=== PATIENT | male | born 1975 | race Hispanic/Latino ===

== ENCOUNTER 2017-08-29 09:35 | Emergency (ER) | payer BC ==
[2017-08-29 09:39] VITALS: BMI 24.2
[2017-08-29 09:41] VITALS: BP 131/84; PULSE 58; RESP 16; TEMP 97.6; O2SAT 99
--- NOTE | 2017-08-29 10:12 | RAD ---
PROCEDURE: Left Foot Radiographs. HISTORY: left foot pain injury COMPARISON: None. FINDINGS: BONES: There is an acute comminuted nondisplaced fracture in the base of the 5th metatarsal. Bone alignment and mineralization are normal. JOINTS: Normal. SOFT TISSUES: Normal. OTHER FINDINGS: None. IMPRESSION: Acute comminuted transverse nondisplaced fracture in the base of the 5th metatarsal.
--- NOTE | 2017-08-29 10:36 | ED PDOC ---
Lower Extremity Pain/Injury Time Seen by Provider: 08/29/17 09:44 Chief Complaint (Nursing): Lower Extremity Problem/Injury Chief Complaint (Provider): Lower Extremity Problem/Injury History Per: Patient History/Exam Limitations: no limitations Onset/Duration Of Symptoms: Days (x2 days) Additional Complaint(s): 42 y/o male presents to the ED complaining of pain in left foot dorsum x 2 days. States that he stepped on a plastic toy and twisted his foot. Reports that pain is worse as he walks and put weight on it. Denies any further medical complaints. - Ankle/Foot Description Of Injury: Twisted (Left foot) Past Medical History Reviewed: Historical Data, Nursing Documentation, Vital Signs Vital Signs: Last Vital Signs Temp 97.6 F 08/29/17 09:40 Pulse 58 L 08/29/17 09:40 Resp 16 08/29/17 09:40 BP 131/84 08/29/17 09:40 Pulse Ox 99 08/29/17 09:40 - Medical History PMH: No Chronic Diseases - Surgical History Surgical History: Hernia Repair (as ) - Family History Family History: States: Unknown Family Hx - Social History Current smoker - smoking cessation education provided: No (Never Smoked) Alcohol: None Drugs: Denies - Home Medications Home Medications: Ambulatory Orders Medication Instructions Recorded Amoxicillin/Clavulanate Pota 1 tab PO BID #14 tab 06/15/14 [Augmentin 875 mg-125 mg] Oxycodone HCl/Acetaminophen 1 tab PO Q4 #10 tab 07/22/14 [Percocet 325 mg-5 mg] Penicillin V Potassium [Aoracillin 500 mg PO BID #20 tab 07/22/14 B] - Allergies Allergies/Adverse Reactions: Allergies Allergy/AdvReac Type Severity Reaction Status Date / Time No Known Allergies Allergy Verified 08/29/17 09:57 Review of Systems ROS Statement: Except As Marked, All Systems Reviewed And Found Negative (As per HPI, otherwise negative) Musculoskeletal: Positive for: Foot Pain (Left) Physical Exam - Reviewed Nursing Documentation Reviewed: Yes Vital Signs Reviewed: Yes - Physical Exam Appears: Positive for: Non-toxic, No Acute Distress Head Exam: Positive for: ATRAUMATIC, NORMAL INSPECTION, NORMOCEPHALIC Skin: Positive for: Normal Color, Warm, Dry Eye Exam: Positive for: Normal appearance, EOMI ENT: Positive for: Normal ENT Inspection Neck: Positive for: Normal Cardiovascular/Chest: Positive for: Regular Rate, Rhythm Respiratory: Positive for: Normal Breath Sounds. Negative for: Accessory Muscle Use, Respiratory Distress Gastrointestinal/Abdominal: Positive for: Normal Exam, Soft. Negative for: Tenderness Back: Positive for: Normal Inspection Extremity: Positive for: Normal ROM, Tenderness (in left 5th metatarsal bone area), Swelling (mild swelling noted in left 5th metatarsal bone area), Other ( Ankle is normal). Negative for: Deformity Neurologic/Psych: Positive for: Alert, Oriented (x3) - ECG O2 Sat by Pulse Oximetry: 99 (RA) Pulse Ox Interpretation: Normal Medical Decision Making Medical Decision Making: Time: 09:51 Initial Impression: Foot injury Differential diagnosis: Foot fracture, foot pain Plan: Motrin 600mg PO Foot x-ray Time: 10:10 Foot x-ray FINDINGS: BONES: There is an acute comminuted nondisplaced fracture in the base of the 5th metatarsal. Bone alignment and mineralization are normal. JOINTS: Normal. SOFT TISSUES: Normal. OTHER FINDINGS: None. IMPRESSION: Acute comminuted transverse nondisplaced fracture in the base of the 5th metatarsal. --Case discussed with podiatry resident and he will come down to see the patient. Cast was placed by podiatry resident. Follow up with Dr Tomlinson. Time: 11:14 Upon provider reevaluation patient is feeling better, is medically stable, and requires no further treatment in the ED at this time. Patient will be home. Counseling was provided and all questions were answered regarding diagnosis and need for follow up with nurse staff. There is agreement to discharge plan. Return if symptoms persist or worsen. Clinical Impression: left foot fracture, fracture of fifth metatarsal bone Scribe Attestation: Documented by Valentino Banegas acting as a scribe for [place] MD. Scribe Attestation: All medical record entries made by the Scribe were at my direction and personally dictated by me. I have reviewed the chart and agree that the record accurately reflects my personal performance of the history, physical exam, medical decision making, and the department course for this patient. I have also personally directed, reviewed, and agree with the discharge instructions and disposition. Disposition - Clinical Impression Clinical Impression: Foot fracture, left, Fracture of fifth metatarsal bone - Patient ED Disposition Is Patient to be Admitted: No Doctor Will See Patient In The: Office Counseled Patient/Family Regarding: Studies Performed, Diagnosis, Need For Followup - Disposition Referrals: Ritchie Tomlinson DPM [[facility]] - Disposition: Routine/Home Disposition Time: 11:14 Condition: GOOD Additional Instructions: Take motrin for pain. Carry cast until seen by nurse staff. Follow up with nurse staff within 1 week. Instructions: Foot Fracture (DC)
--- NOTE | 2017-08-29 12:55 | CP.PCM.CON ---
History of Present Illness - History of Present Illness History of Present Illness: 42 y/o male with no significant PMHx seen in ED after consultation for left foot injury. Pt states that late last night he was stepping down from a bunk bed and stepped on something, twisting his foot. He states that all morning he has been unable to walk on the outside of the foot, admitted it is painful to bear weight. Denies attempting any treatment. Denies numbness, tingling or burning. Denies F/C/N/V/CP/SOB PSHx: denies All: denies SocHx: social EtOH; denies cigarette or drug use Review of Systems - Review of Systems All systems: reviewed and no additional remarkable complaints except (per HPI) Past Patient History - Past Social History Alcohol: None Drugs: Denies - PSYCHIATRIC Hx Substance Use: No Meds Allergies/Adverse Reactions: Allergies Allergy/AdvReac Type Severity Reaction Status Date / Time No Known Allergies Allergy Verified 08/29/17 09:57 Physical Exam - Constitutional Appears: Well, Non-toxic, No Acute Distress - Extremities Exam Additional comments: Left lower extremity focused exam: Vasc: DP/PT pulses 2/4. Temperature gradient warm to warm. CFT < 3 sec to all digits. Localized pedal edema noted over proximal aspects of 4th and 5th metatarsals. Derm: No open lesions, no erythema, no ecchymosis Neuro: Protective sensation grossly intact Ortho: Mild-moderate tenderness to passive ankle plantarflexion and subtalar joint inversion at level of 5th metatarsal base. Decreased active ankle joint plantarflexion and subtalar joint inversion secondary to guarding. (-) calf tenderness. Moderate tenderness to palpation of 5th metatarsal base. No tenderness along palpation of peroneal tendons. STJ eversion ROM slight decreased due to guarding. - Neurological Exam Neurological exam: Alert, Oriented x3 - Psychiatric Exam Psychiatric exam: Normal Affect, Normal Mood Results - Vital Signs Recent Vital Signs: Last Vital Signs Temp 97.6 F 08/29/17 09:40 Pulse 58 L 08/29/17 09:40 Resp 16 08/29/17 09:40 BP 131/84 08/29/17 09:40 Pulse Ox 99 08/29/17 11:44 Assessment & Plan - Assessment and Plan (Free Text) Assessment: 42 y/o male with left foot acute nondisplaced 5th metatarsal base fracture secondary to trauma Plan: Pt seen and evaluated in ED Discussed with attending Dr. Tomlinson X-rays of L foot reveal acute comminuted transverse nondisplaced 5th metatarsal base fracture Pt placed in short leg case and dispensed crutches Pt advised to remain NWB at all times and keep cast clean/dry/intact Pt to follow up with Dr. Tomlinson in his office within 1 week Thank you for this consult
== END 2017-08-29 11:50 | disposition home or self-care (01) ==
LOC: H.ER 09:35
DX: S92.351A Displaced fracture of fifth metatarsal bone, right foot, initial encounter for closed fracture (principal); X50.9XXA Other and unspecified overexertion or strenuous movements or postures, initial encounter; Y92.89 Other specified places as the place of occurrence of the external cause